=== PATIENT | female | born 1960 | race Caucasian/White ===

== ENCOUNTER 2021-11-17 19:40 | Emergency (ER) | payer OTHER ==
[~2021-11-17] VITALS: Ht 167.6 cm; Wt 117.9 kg
--- NOTE | 2021-11-17 21:29 | NUR ---
pt in room 4a states she fell at home in the bathroom and hit her head. she denies knockout. pt is sitting on a chair prefers this over sitting on a gourney she states.
--- NOTE | 2021-11-17 21:31 | NUR ---
Dr. Mcclellan in room for ROSALINE.
[2021-11-17 21:46] LABS: HEMATOCRIT 48.5 % (31.2-41.9); MEAN CORPUSCULAR HEMOGLOBIN 29.4 uug (24.7-32.8); MEAN CORPUSCULAR VOLUME 88.6 fL (75.5-95.3); PLATELET COUNT (AUTO) 312 K/uL (179-408)
[2021-11-17 21:54] LABS: CREATININE 1.1 mg/dL (0.6-1.3); POTASSIUM 4.9 mmol/L (3.5-5.1)
[2021-11-17] MEDS ORDERED: OXYCODONE/APAP 5-325 MG TABLET PO ONE (22:15)
[2021-11-17] MEDS ORDERED: OXYCODONE/APAP 5-325 MG TABLET ONE (22:15)
[2021-11-17] MEDS ORDERED: OXYC-128 PO (22:56)
--- NOTE | 2021-11-17 23:19 | NUR ---
Patient discharged to home in stable condition. Written and verbal after care instructions given. Patient verbalizes understanding of instructions. Stressed follow up or return to ER for worsening s/s.
[2021-11-17 23:20] VITALS: BP 130/80
== END 2021-11-17 23:20 | disposition home or self-care (01) ==
LOC: ER 19:42
DX: S12.001A Unspecified nondisplaced fracture of first cervical vertebra, initial encounter for closed fracture (principal); W01.198A Fall on same level from slipping, tripping and stumbling with subsequent striking against other object, initial encounter; Y92.031 Bathroom in apartment as the place of occurrence of the external cause; I48.20 Chronic atrial fibrillation, unspecified; S00.03XA Contusion of scalp, initial encounter; E11.9 Type 2 diabetes mellitus without complications; I10 Essential (primary) hypertension
CPT/HCPCS: 36415; 70450; 72125; 83735; 85025; A4663